=== PATIENT | female | born 1945 | race Caucasian/White ===

== ENCOUNTER 2017-03-29 07:51 | Day surgery (SDC) | payer MEDICARE, BC ==
[2017-03-29 08:40] LABS: PARTIAL THROMBOPLASTIN TIME 27.4 SEC (23.5-35.8); PROTHROMBIN TIME 12.7 SEC (11.4-15.4)
[2017-03-29] MEDS ORDERED: OXYCODONE-ACETAMINOPHEN 5-325 MG TABLET ONE (10:42)
--- NOTE | 2017-03-29 11:59 | RADIOLOGY REPORT (SQ) ---
EXAM DESCRIPTION: CT LUMBAR SPINE WITH COMPLETED DATE/TIME: 03/29/2017 10:34 am REASON FOR STUDY: POST LUMBAR MYELOGRAM M48.06 SPINAL STENOSIS, LUMBAR REGION Z79.01 SHELTER (CU RRENT) USE OF ANTICOAGULANTS COMPARISON: None. TECHNIQUE: After performing lumbar myelogram, axial images were acquired through the lumbar spine wi thout intravenous contrast. Images reviewed with lung, soft tissue and bone windows. Reconstructed coronal and sagittal MPR images reviewed. All images stored on PACS. All CT scanners at this facility use dose modulation, iterative reconstruction, and/or weight based d osing when appropriate to reduce radiation dose to as low as reasonably achievable (ALARA). [facility]: Dose Right [facility]: CareDose [facility]: Dose Right [facility]: Teradose 4D [facility]: Smart Technologies RADIATION DOSE: Up-to-date CT equipment and radiation dose reduction techniques were employed. CTDIv ol: 14.7 mGy. DLP: 413 mGy-cm. mGy. LIMITATIONS: None. FINDINGS: SEGMENTATION: Normal. No transitional anatomy. ALIGNMENT: Grade 1 anterolisthesis of L4 on L5. VERTEBRAL BODIES: No fractures. No dislocation. No acute findings. HARDWARE: Posterior hardware at L4, L5, and S1. DISCS: L1-L2: Diffuse posterior disc bulge with focal right paracentral component. Mild spinal stenosis. L2-L3: Diffuse posterior disc bulge. Mild facet arthropathy. Mild -moderate spinal stenosis. L3-L4: Diffuse posterior disc bulge. Severe facet arthropathy. Severe spinal stenosis. L4-L5: Minimal diffuse posterior disc bulge. Laminectomy changes. No significant stenosis. L5-S1: No significant disc bulge. Laminectomy changes. No significant stenosis. PEDICLES, TRANSVERSE PROCESSES: No fractures. No dislocation. No acute findings. FACETS, POSTERIOR ELEMENTS: No fractures. No dislocation. VISUALIZED RIBS: No fractures. SOFT TISSUES: No significant or acute finding in adjacent soft tissues. OTHER: No other significant finding. IMPRESSION: SURGICAL CHANGES DESCRIBED. SPINAL STENOSIS IN THE UPPER LUMBAR SPINE WITH SEVERE ST ENOSIS AT L3-L4. COMMENT: Patient medication list reviewed: Yes- Quality ID# [id number]:Eligible professional attests to doc umenting in the medical record they obtained, updated, or reviewed the patient's current medications. TECHNICAL DOCUMENTATION: JOB ID: [id number] Quality ID # [id number]: Final reports with documentation of one or more dose reduction techniques (e.g., Au tomated exposure control, adjustment of the mA and/or kV according to patient size, use of iterative reconstruction technique) 2010 [employer]- All Rights Reserved
--- NOTE | 2017-03-29 12:02 | RADIOLOGY REPORT (SQ) ---
EXAM DESCRIPTION: MYELOGRAM LUMBAR COMPLETED DATE/TIME: 03/29/2017 10:26 am REASON FOR STUDY: SPINAL STENOSIS M48.06 SPINAL STENOSIS, LUMBAR REGION Z79.01 HALFWAY (CURRENT) USE OF ANTICOAGULANTS COMPARISON: None. FLUOROSCOPY TIME: 1 minutes 48 seconds. 31 images saved to PACS. TECHNIQUE: Fluoroscopic guided lumbar myelogram. LIMITATIONS: None. PROCEDURE: After written consent and assessment were obtained, the patient was brought into the fluo roscopy room and placed prone on the table. The patient's lower back was prepped in a sterile fashio n and an entry site was selected under live fluoroscopic guidance. The entry site was anesthetized wi th 1% lidocaine. The spinal needle was advanced through the skin and into the thecal sac at the leve l of L3-L4. Contrast was injected into the thecal sac. Following the procedure the needle was remov ed and a sterile bandage was placed of the site. CONTRAST: 15 mL Isovue 200.. IMAGES ACQUIRED: 31 images. FINDINGS: Contrast is present in the thecal sac. There are surgical changes in the lower lumbar spine with hardware. There is evidence of lumbar disc disease with stenosis in the upper lumbar spine, most pronounced at L3-L4. IMPRESSION: LUMBAR MYELOGRAM PERFORMED FOR CT MYELOGRAPHY. PLEASE REFER TO THE REPORT OF THE CT MYE LOGRAM FOR DETAILED DIAGNOSTIC EVALUATION. COMMENT: Patient medication list reviewed: Yes- Quality ID# [id number]:Eligible professional attests to doc umenting in the medical record they obtained, updated, or reviewed the patient's current medications. . Quality ID 145: Final reports for procedures using fluoroscopy that document radiation exposure iesha alycia, or exposure time and number of fluorographic images (if radiation exposure indices are not avail able) TECHNICAL DOCUMENTATION: JOB ID: [id number] [employer]- All Rights Reserved
[2017-03-29 13:16] VITALS: BP 157/75
== END 2017-03-29 12:40 | disposition home or self-care (01) ==
LOC: RAD 07:51
PROVIDERS: ATTEND Physician Assistant
PROC: B01BYZZ Fluoroscopy of Spinal Cord using Other Contrast (ICD-10-PCS; principal; 2017-03-29)
DX: M48.06 Spinal stenosis, lumbar region (principal); Z79.01 Long term (current) use of anticoagulants
CPT/HCPCS: 36415; 85610; 85730; 72265; 72132; A9270

== ENCOUNTER → 2018-06-21 | Outpatient (CLI) | payer MEDICARE, BC ==
--- NOTE | 2018-07-05 09:34 | WOMENS IMAGING REPORT ---
EXAM DESCRIPTION: 3D SCREENING MAMMO BILAT COMPLETED DATE/TIME: 06/21/2018 10:35 am REASON FOR STUDY: ROUTINE SCREENING Z12.31 Z12.31 ENCNTR SCREEN MAMMOGRAM FOR MALIGNANT NEOPLASM OF ROBERTO COMPARISON: 2015 TECHNIQUE: Standard craniocaudal and mediolateral oblique views of each breast recorded using digita l acquisition and breast tomosynthesis. LIMITATIONS: None. FINDINGS: No masses, calcifications or architectural distortion. No areas of suspicion. Read with the assistance of CAD. .[facility] - R2 Cenova Version 1.3 .[facility] - R2 Cenova Version 1.3 .[facility] - R2 Cenova Version 2.4 .[facility] [place] Cenova Version 2.4 .[facility] AT [facility] - R2 [employer] Maker Version 9.2 IMPRESSION: NORMAL MAMMOGRAM. BIRADS 1. BREAST DENSITY: b. There are scattered areas of fibroglandular density. BIRAD: 1 NEGATIVE RECOMMENDATION: ROUTINE SCREENING COMMENT: The patient has been notified of the results by letter per SA requirements. Additional no tification policies are in place for contacting patient with suspicious or incomplete findings. Quality ID #225: The [employer] recommends an annual screening mammogram for women aged 40 years or over. This facility utilizes a reminder system to ensure that all patients receive reminder letters, and/or direct phone calls for appointments. This includes reminders for routine scr eening mammograms, diagnostic mammograms, or other Breast Imaging Interventions when appropriate. Th is patient will be placed in the appropriate reminder system. The [employer] (ACR) has developed recommendations for screening MRI of the breast s in certain patient populations, to be used in conjunction with mammography. Breast MRI surveillanc e may be appropriate for women with more than 20% lifetime risk of developing breast cancer as deter mined by genetic testing, significant family history of the disease, or history of mantle radiation f or Hodgkins Disease. ACR Practice Guidelines 2008. DBT Technology DBT is a type of tomographic mammography. With conventional mammography, overlapping breast tissue ma y make lesions difficult to detect, even with good compression. DBT uses an x-ray tube that rotates a round the breast, taking images at different angles. These images are then combined to create thin sl ices of the breast that the radiologist can view as a 3D reconstruction. The [employer] unit can perform full-field digital mammograms (2D imaging); or DBT (3D imaging); or both, in a combination mode that quickly performs both the mammogram and the tomosynthesis scan while the breast is still compressed. PQRS 6045F: Fluoroscopic imaging is not utilized for breast tomosynthesis. TECHNICAL DOCUMENTATION: FINDING NUMBER: (1) ASSESSMENT: (1) JOB ID: [id number] [employer]- All Rights Reserved Reading location - IP/workstation name: [email or web address]
== END ==
LOC: WI 10:02
PROVIDERS: ATTEND Obstetrics & Gynecology
DX: Z12.31 Encounter for screening mammogram for malignant neoplasm of breast (principal)
CPT/HCPCS: 77063; 77067

== ENCOUNTER 2020-09-24 13:32 | Inpatient (IN) | payer MEDICARE, BC ==
[2020-09-24] MEDS ORDERED: NORMAL SALINE 500 ML IV ONE (14:13)
--- NOTE | 2020-09-24 14:24 | ER Document Report ---
ED Medical Screen (RME) - General Chief Complaint: Vomiting/Diarrhea Stated Complaint: DIARRHEA,VOMITING,RECTAL BLEEDING Time Seen by Provider: 09/24/20 14:03 Primary Care Provider: VALENTINA JIANG DO [Primary Care Provider] - Follow up as needed TRAVEL OUTSIDE OF THE [place] IN LAST 30 DAYS: No - HPI Notes: 09/24/20 14:14 75 year old female with a history of hypertension, uxf-ggjdbif-cqnrlyoms diabetes allergies presents to the emergency room today for acute onset abdominal pain which caused her to have vomiting and she was having bloody stool that is started late last night and into the crystal lapper. Reports she took 2 antidiarrheal medications which have slowed down her stooling. Patient has a history of severe anemia and has had multiple blood transfusions. Denies any history of IBS or Crohn's disease, recent travel outside the country, recently started on glipizide she said it upset her stomach so she went to half a dose which has helped. Denies any chest pain shortness of breath - Related Data Allergies/Adverse Reactions: aspirin [Aspirin] Allergy (Mild, Verified 03/24/16 19:07) Generalized rash cephalexin monohydrate [From Keflex] Allergy (Mild, Verified 03/24/16 19:07) Generalized Itching glucosamine [Glucosamine] Allergy (Mild, Verified 03/24/16 19:07) Generalized Itching latex [Latex] Allergy (Mild, Verified 03/24/16 19:07) Generalized Itching niacin [Niacin] Allergy (Mild, Verified 03/24/16 19:07) Generalized Itching Past Medical History - Past Medical History Cardiac Medical History: Reports: Hx Coronary Artery Disease, Hx Hypertension Denies: Hx Heart Attack Pulmonary Medical History: Reports: Hx Asthma Denies: Hx Bronchitis, Hx COPD, Hx Pneumonia Neurological Medical History: Denies: Hx Cerebrovascular Accident, Hx Seizures Musculoskeltal Medical History: 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
[2020-09-24 14:52] LABS: ABSOLUTE LYMPHOCYTES (AUTO) 1.8 10^3/uL (0.5-4.7); ABSOLUTE MONOCYTES (AUTO) 0.8 10^3/uL (0.1-1.4); ABSOLUTE NEUT (AUTO) 8.3 10^3/uL (1.7-8.2); BASOPHILS % (AUTO) 0.4 % (0-2); EOSINOPHILS % (AUTO) 0.3 % (0-6); HEMATOCRIT 43.5 % (36.0-47.0); HEMOGLOBIN 15.2 g/dL (12.0-15.5); LYMPHOCYTES % (AUTO) 16.2 % (13-45); MEAN CORPUSCULAR HEMOGLOBIN 30.6 pg (27.0-33.4); MEAN CORPUSCULAR HGB CONC 35.1 g/dL (32.0-36.0); MEAN CORPUSCULAR VOLUME 87 fl (80-97); MONOCYTES % (AUTO) 7.5 % (3-13); PLATELET COUNT 312 10^3/uL (150-450); RED BLOOD COUNT 4.98 10^6/uL (3.72-5.28); RED CELL DISTRIBUTION WIDTH 12.8 % (11.5-14.0); SEGMENTED NEUTROPHILS % (AUTO) 75.6 % (42-78); TOTAL CELLS COUNTED % (AUTO) 100 %; WHITE BLOOD COUNT 10.9 10^3/uL (4.0-10.5)
[2020-09-24 14:57] LABS: INTERNATIONAL RATION (INR) 1.04; PROTHROMBIN TIME 13.8 SEC (11.4-15.4)
[2020-09-24 14:58] LABS: PARTIAL THROMBOPLASTIN TIME 26.8 SEC (23.5-35.8)
[2020-09-24 15:19] LABS: ALBUMIN 4.2 g/dL (3.5-5.0); ALKALINE PHOSPHATASE 108 U/L (38-126); ANION GAP 11 (5-19); ASPARTATE AMINO TRANSFERASE 27 U/L (14-36); BILIRUBIN,DIRECT 0.3 mg/dL (0.0-0.4); BILIRUBIN,TOTAL 1.1 mg/dL (0.2-1.3); BLOOD UREA NITROGEN 19 mg/dL (7-20); CALCIUM 9.7 mg/dL (8.4-10.2); CARBON DIOXIDE 27 mmol/L (22-30); CHLORIDE 92 mmol/L (98-107); POTASSIUM 4.3 mmol/L (3.6-5.0); TOTAL PROTEIN 7.1 g/dL (6.3-8.2)
[2020-09-24 15:26] LABS: GLUCOSE 436 mg/dL (75-110)
--- NOTE | 2020-09-24 18:57 | ER Document Report ---
ED General - General Chief Complaint: Abdominal Pain Stated Complaint: DIARRHEA,VOMITING,RECTAL BLEEDING Time Seen by Provider: 09/24/20 14:03 Primary Care Provider: VALENTINA JIANG DO [Primary Care Provider] - Follow up as needed TRAVEL OUTSIDE OF THE [place] IN LAST 30 DAYS: No - HPI Notes: Patient is a 75-year-old female presents emergency department for evaluation of vomiting, and bloody stools. Patient states she took her glipizide, which she believes she has some sensitivity to. She started having vomiting and diarrhea. She had 2 episodes of nonbloody, nonbilious emesis. Throughout the night she had diarrhea. She did not realize in the till the morning that it was bloody. She states it was primarily bright red. She is some cramping lower abdominal pain. She is not any blood thinners. She does have a history of iron deficiency anemia, receives iron infusions intermittently. She denies any fevers or chills. No cough or shortness of breath. No hematuria, dysuria, urinary frequency. The patient states she attributes all of this to the medication. She states that when she takes her pill she gets "swelling of the tongue" then the vomiting and diarrhea. She already has an appointment with her primary care provider on to discuss a new medication for her glucose control. She states that she usually does not have high blood sugar, but cannot tell me what her blood sugar normally runs. - Related Data Allergies/Adverse Reactions: aspirin [Aspirin] Allergy (Mild, Verified 09/24/20 14:59) Generalized rash cephalexin monohydrate [From Keflex] Allergy (Mild, Verified 09/24/20 14:59) Generalized Itching glucosamine [Glucosamine] Allergy (Mild, Verified 09/24/20 14:59) Generalized Itching latex [Latex] Allergy (Mild, Verified 09/24/20 14:59) Generalized Itching niacin [Niacin] Allergy (Mild, Verified 09/24/20 14:59) Generalized Itching Home Medications: Lisinopril, HCTZ, glipizide, Ultram Past Medical History - General Information source: Patient - Social History Smoking Status: Never Smoker Family History: Reviewed & Not Pertinent - Past Medical History Cardiac Medical History: Reports: Hx Hypertension Denies: Hx Heart Attack Pulmonary Medical History: Reports: Hx Asthma Denies: Hx Bronchitis, Hx COPD, Hx Pneumonia Neurological Medical History: Denies: Hx Cerebrovascular Accident, Hx Seizures GI Medical History: Reports: Hx Ulcer - Noted on EGD in 2016, currently untreated Musculoskeletal Medical History: 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 Past Surgical History: Reports: Hx Hysterectomy, Hx Orthopedic Surgery Review of Systems - Review of Systems Constitutional: No symptoms reported EENT: See HPI Cardiovascular: No symptoms reported Respiratory: No symptoms reported Gastrointestinal: See HPI Genitourinary: No symptoms reported Musculoskeletal: No symptoms reported Skin: No symptoms reported Neurological/Psychological: No symptoms reported Physical Exam - Vital signs Vitals: Temp Pulse Resp BP Pulse Ox 98.1 F 100 20 128/77 H 95 09/24/20 13:58 09/24/20 13:58 09/24/20 13:58 09/24/20 13:58 09/24/20 13:58 - Notes Notes: Vital signs reviewed, please refer to chart. Head is normocephalic, atraumatic. Pupils equal round, reactive to light. Neck is supple without meningismus. Heart is regular rate and rhythm. Lungs are clear to auscultation bilaterally. Abdomen is soft, mildly tender bilateral lower quadrants without rebound or guarding, normoactive bowel sounds throughout. Extremities without cyanosis, clubbing. Posterior calves are nontender. Peripheral pulses are equal. Skin is warm and dry. Patient is awake, alert, neurological exam is nonfocal. Course - Re-evaluation Re-evalutation: 09/24/20 18:55 Patient presents emergency department for evaluation. Laboratory investigations and imaging was ordered through triage. Imaging is still pending. Laboratory investigations failed to reveal any significant leukocytosis or anemia. Her blood sugar is markedly elevated. Patient has multiple medication sensitivities. She is n.p.o. I am not inclined to treat this high glucose with anything beyond fluids at this time. Patient is amenable to this plan. Otherwise, I reviewed her colonoscopy, she was found to have both diverticulosis and internal hemorrhoids at that time. The patient has had a few bowel movements since arrival, the last several have been nonbloody. We talked about the possibility of being admitted to the hospital, given her age and the mult iple bloody bowel movements that she had, but she states she would prefer not to. In light of the Covid epidemic, I do believe it is more reasonable to send this patient home, pending a normal CT scan. She already has GI, has seen Dr. Bolivar in the past, and is actually had a repeat EGD, colonoscopy, and "pill camera" performed since her discharge in 2016. She already has an appoint with her primary care provider on . I explained to her that her blood glucose was high, that she would absolutely need to be on medication to control this better. She voiced understanding. I explained her that any further bloody stools should prompt her to return and she voiced understanding. Otherwise, pending unremarkable CT scan, patient will be discharged. 09/24/20 19:19 CT scan does show findings consistent with colitis. I reiterated with patient, she is not been on any recent antibiotics, does not have any risk factors for C. difficile. Based on this finding I did speak with Dr. Horvath. He recommends admission and colonoscopy. I went back in to talk to the patient and she did have another bloody bowel movement. Given this information, she was amenable to staying. Will contact medicine. 09/24/20 19:22 Please note patient was notified of bilateral renal cyst finding and need for further imaging to delineate whether any of these could be possible solid masses. 09/24/20 19:[address] Garcia, he will evaluate the patient. - Vital Signs Vital signs: Temp Pulse Resp BP Pulse Ox 98.0 F 89 16 152/75 H 98 09/24/20 15:49 09/24/20 15:49 09/24/20 20:00 09/24/20 17:00 09/24/20 20:00 - Laboratory Results Result Diagrams: 09/24/20 14:20 09/24/20 14:20 Laboratory Results Interpreted: 09/24/20 09/24/20 09/24/20 14:20 14:20 15:37 WBC 10.9 H Absolute Neuts (auto) 8.3 H Sodium 130.3 L Chloride 92 L Est GFR (MDRD) Non-Af 57 L Glucose 436 H* Stool for White Cells MODERATE H Critical Laboratory Results Reviewed: Yes Attending or Supervising Physician who Reviewed Labs: NADIYA FERGUSON - Radiology Results Radiology Results Interpreted: 09/24/20 19:21 Abdomen/Pelvis CT 09/24/20 14:11 IMPRESSION: 1. Relative diffuse colitis extending from the hepatic flexure to the rectum with differential considerations including infectious and inflammatory etiologies. C difficile colitis should also be considered. 2. No bowel obstruction. 3. Moderate to large hiatal hernia. 4. Multiple bilateral renal cysts. Some lesions are not optimally assessed due to size and artifact from adjacent lumbar spine hardware. Suggest ultrasound for further evaluation and to exclude solid lesion. Critical Radiology Results Reviewed: No Critical Results Discharge - Discharge Clinical Impression: Lower abdominal pain, Hematochezia, Nausea vomiting and diarrhea, Bilateral renal cysts Hyperglycemia due to type 2 diabetes mellitus Qualifiers: Diabetes mellitus senior living insulin use: without senior living use Qualified Code(s): E11.65 - Type 2 diabetes mellitus with hyperglycemia Condition: Stable Disposition: ADMITTED INPATIENT Admitting Provider: [facility] Unit Admitted: [facility] Referrals: VALENTINA JIANG DO [Primary Care Provider] - Follow up as needed
--- NOTE | 2020-09-24 19:00 | RADIOLOGY REPORT (SQ) ---
EXAM DESCRIPTION: CT ABD/PELVIS WITH IV ORAL IMAGES COMPLETED DATE/TIME: 09/24/2020 3:17 pm REASON FOR STUDY: abd pain, melena, sudden onset last night COMPARISON: None. TECHNIQUE: CT scan of the abdomen and pelvis performed using helical scanning technique with dynamic intravenous contrast injection. Oral contrast was also given. Images reviewed with lung, soft tissu e, and bone windows. Reconstructed coronal and sagittal MPR images reviewed. Delayed images for evalu ation of the urinary system also acquired. All images stored on PACS. All CT scanners at this facility use dose modulation, iterative reconstruction, and/or weight based d osing when appropriate to reduce radiation dose to as low as reasonably achievable (ALARA). [facility]: Dose Right [facility]: CareDose [facility]: Dose Right [facility]: Teradose 4D [facility]: [employer] CONTRAST TYPE AND DOSE: contrast/concentration: Isovue 350.00 mmol/ml; Total Contrast Delivered: 70. 0 ml; Total Saline Delivered: 35.3 ml RENAL FUNCTION: Creatinine 0.96 RADIATION DOSE: CT Rad equipment meets quality standard of care and radiation dose reduction techniq ues were employed. CTDIvol: 6.9 - 9.6 mGy. DLP: 790 mGy-cm.. LIMITATIONS: Artifact from lumbar spine hardware. FINDINGS: LOWER CHEST: Lung bases are clear. Moderate to large-sized hiatal hernia. The superior e xtent of the hernia is not fully included. LIVER: Normal size. No masses. No dilated ducts. SPLEEN: Normal size. No focal lesions. PANCREAS: No masses. No significant calcifications. No adjacent inflammation or peripancreatic fluid collections. Pancreatic duct not dilated. GALLBLADDER: No identified stones by CT criteria. No inflammatory changes to suggest cholecystitis. ADRENAL GLANDS: No significant masses or asymmetry. RIGHT KIDNEY AND URETER: No suspicious renal mass. Multiple hypodense renal lesions likely represent ing benign cysts. No significant calcifications. No hydronephrosis or hydroureter. LEFT KIDNEY AND URETER: Multiple hypodense renal lesions likely representing benign cysts. Possible small hyperdense cyst at the lower pole left kidney (series 3, image 37). This is also not optimally assessed given small size and artifact from adjacent hardware. . No significant calcifications. No hydronephrosis or hydroureter. AORTA AND VESSELS: Atherosclerotic plaque without aneurysm. RETROPERITONEUM: No retroperitoneal adenopathy, hemorrhage or masses. BOWEL AND PERITONEAL CAVITY: There is diffuse circumferential wall thickening of the: Extending from the proximal transverse colon/ hepatic flexure to the level of the rectum. Adjacent fat stranding a lso demonstrated. No obstruction. APPENDIX: Normal. This is better seen on coronal images (series 601 images 39 and 40). PELVIS: No mass. No free fluid. Normal bladder. Status posthysterectomy. ABDOMINAL WALL: No masses. No hernias. BONES: Postsurgical changes related to posterior and interbody fusion of the lumbar spine. No destru ctive bone lesions identified. OTHER: No other significant finding. IMPRESSION: 1. Relative diffuse colitis extending from the hepatic flexure to the rectum with diffe rential considerations including infectious and inflammatory etiologies. C difficile colitis should also be considered. 2. No bowel obstruction. 3. Moderate to large hiatal hernia. 4. Multiple bilateral renal cysts. Some lesions are not optimally assessed due to size and artifact from adjacent lumbar spine hardware. Suggest ultrasound for further evaluation and to exclude solid lesion. TECHNICAL DOCUMENTATION: JOB ID: [id number] Quality ID # [id number]: Final reports with documentation of one or more dose reduction techniques (e.g., Au tomated exposure control, adjustment of the mA and/or kV according to patient size, use of iterative reconstruction technique) 2010 [employer]- All Rights Reserved Reading location - IP/workstation name: [email or web address]
[2020-09-24] MEDS ORDERED: ONDANSETRON HCL INJ/PF 4 MG/2 ML SDV IV PRN (20:34)
[2020-09-24] MEDS ORDERED: ACETAMINOPHEN 325 MG TABLET PO PRN (20:34)
[2020-09-24] MEDS ORDERED: DEXTROSE 50%-WATER 25 GM/50 ML DISP.SYRIN IV PRN ×2 (20:42)
[2020-09-24] MEDS ORDERED: GLUCAGON,HUMAN RECOMB 1 MG INJ IM PRN (20:42)
[2020-09-24] MEDS ORDERED: DEXTROSE 40% GEL 15 GM TUBE PO PRN ×2 (20:42)
--- NOTE | 2020-09-24 21:01 | PDOC H&P ---
History of Present Illness Admission Date/PCP: VALENTINA JIANG MD Patient complains of: Nausea, vomiting and bloody diarrhea History of Present Illness: JUDITH QUEZADA is a 75 year old female with a history of hypertension, type 2 diabetes, chronic low back pain and history of iron deficiency anemia with multiple infusions and blood transfusions since 2010 now presents to the ED reporting 2 days duration of nausea, vomiting, bloody diarrhea. She states that she became nauseous and started having vomiting after she took glipizide. And following that started having multiple episodes of diarrhea mixed with bright red blood. Associated with this she also reports crampy, 7/10 constant lower abdominal pain with no aggravating or relieving factor. She has not noticed any bleeding in her vomitus and denies upper abdominal pain. She reports that she had a history of chronic anemia and has been following up with heme-onc for a long time. She states that she has been worked up extensively including upper and lower GI endoscopy with capsule endoscopy which were all negative except for signs of hemorrhoid. She had multiple transfusions in the past including iron IV iron infusion. Patient states that the cause of her anemia was not known. Her last colonoscopy with 3 years back and she states it was negative except some internal hemorrhoids. She denies any fever, chills, dysuria, frequency, urgency, shortness of breath, chest pain. Currently she is not on any blood thinners including aspirin. Past Medical History Cardiac Medical History: Reports: Coronary Artery Disease, Hypertension Denies: Myocardial Infarction Pulmonary Medical History: Reports: Asthma Denies: Bronchitis, Chronic Obstructive Pulmonary Disease (COPD), Pneumonia Neurological Medical History: Denies: Seizures Musculoskeltal Medical History: Reports: Arthritis - osteo Hematology: Reports: Anemia Past Surgical History Past Surgical History: Reports: Hysterectomy, Orthopedic Surgery Social History Information Source: Patient Lives with: Family Smoking Status: Never Smoker Frequency of Alcohol Use: None Hx Recreational Drug Use: No Drugs: None Hx Prescription Drug Abuse: No - Advance Directive Resuscitation Status: Full Code Family History Family History: Reviewed & Not Pertinent Parental Family History Reviewed: Yes Children Family History Reviewed: Yes Sibling(s) Family History Reviewed.: Yes Medication/Allergy Home Medications: Cetirizine HCl [Zyrtec 10 mg Tablet] 1 tab PO DAILY 03/20/15 Lisinopril 10 mg PO DAILY 03/20/15 Multivit-Min/Iron/Folic/Lutein [Centrum Silver Women Tablet] 1 tab PO DAILY 03/20/15 Tramadol HCl 50 mg PO Q8HP PRN 03/20/15 Albuterol Sulfate [Proair HFA Inhalation Aerosol 8.5 gm MDI] 2 puff IH Q6HP PRN 09/24/20 Glipizide [Glipizide Xl] 10 mg PO DAILY 09/24/20 Hydrochlorothiazide [Hydrodiuril 25 mg Tablet] 12.5 mg PO DAILY 09/24/20 Multivitamin,Stress Formula [Stress Formula] 1 tab PO DAILY 09/24/20 Vit D3-Vit K/Berberine/Hops [Ostera Tablet] 1,000 mcg PO DAILY 09/24/20 Allergies/Adverse Reactions: aspirin [Aspirin] Allergy (Mild, Verified 09/24/20 14:59) Generalized rash cephalexin monohydrate [From Keflex] Allergy (Mild, Verified 09/24/20 14:59) Generalized Itching glucosamine [Glucosamine] Allergy (Mild, Verified 09/24/20 14:59) Generalized Itching latex [Latex] Allergy (Mild, Verified 09/24/20 14:59) Generalized Itching niacin [Niacin] Allergy (Mild, Verified 09/24/20 14:59) Generalized Itching Review of Systems Constitutional: ABSENT: chills, fever(s), headache(s), weight gain, weight loss Eyes: ABSENT: visual disturbances Ears: ABSENT: hearing changes Nose, Mouth, and Throat: ABSENT: mouth pain, sore throat Cardiovascular: ABSENT: chest pain, dyspnea on exertion, edema, orthropnea, palpitations Respiratory: ABSENT: cough, hemoptysis Gastrointestinal: PRESENT: as per HPI Genitourinary: ABSENT: dysuria, hematuria Musculoskeletal: ABSENT: joint swelling Integumentary: ABSENT: rash, wounds Neurological: ABSENT: abnormal gait, abnormal speech, confusion, dizziness, focal weakness, syncope Psychiatric: ABSENT: anxiety, depression, homidical ideation, suicidal ideation Endocrine: ABSENT: cold intolerance, heat intolerance Hematologic/Lymphatic: ABSENT: easy bleeding, easy bruising Physical Exam Vital Signs: Temp Pulse Resp BP Pulse Ox 98.0 F 89 16 152/75 H 98 09/24/20 15:49 09/24/20 15:49 09/24/20 20:00 09/24/20 17:00 09/24/20 20:00 Intake & Output 09/23/20 09/24/20 09/25/20 06:59 06:59 06:59 Intake Total 500 Balance 500 Weight 61.235 kg Additional comments: GENERAL APPEARANCE: Alert and oriented x3, in no acute distress HEENT: Normocephalic and atraumatic. No scleral icterus. Moist oral mucosa NECK: Supple. No lymphadenopathy or tenderness. No carotid bruit. No JVD CHEST: Symmetric. Nontender to palpation. LUNGS: Clear with good air entry bilaterally. No wheezing or crackles HEART: Regular rate and rhythm with normal S1 and S2. No murmurs, gallops, or rubs. ABDOMEN: soft, active bowel sounds, has lower abdominal tenderness but no rebound tenderness, guarding or rigidity. No organomegaly detected. EXTREMITIES: No cyanosis, clubbing, or edema. MUSCULOSKELETAL: No deformity, atrophy or swelling noted PSYCHIATRIC: Recent and remote memory is intact. Appropriate mood and affect. SKIN: Warm, dry, and well perfused. No lesions or rashes are noted. NEUROLOGIC: No focal sensory or motor deficits are noted. Results Laboratory Results: 09/24/20 14:20 09/24/20 14:20 09/24/20 09/24/20 09/24/20 14:20 14:20 14:20 WBC 10.9 H RBC 4.98 Hgb 15.2 Hct 43.5 MCV 87 MCH 30.6 MCHC 35.1 RDW 12.8 Plt Count 312 Seg Neutrophils % 75.6 Sodium 130.3 L Potassium 4.3 Chloride 92 L Carbon Dioxide 27 Anion Gap 11 BUN 19 Creatinine 0.96 Est GFR ( Amer) > 60 Glucose 436 H* Calcium 9.7 Total Bilirubin 1.1 AST 27 Alkaline Phosphatase 108 Total Protein 7.1 Albumin 4.2 Lipase 271.6 Stool for White Cells Blood Type B POSITIVE Antibody Screen NEGATIVE 09/24/20 15:37 WBC RBC Hgb Hct MCV MCH MCHC RDW Plt Count Seg Neutrophils % Sodium Potassium Chloride Carbon Dioxide Anion Gap BUN Creatinine Est GFR ( Amer) Glucose Calcium Total Bilirubin AST Alkaline Phosphatase Total Protein Albumin Lipase Stool for White Cells MODERATE H Blood Type Antibody Screen Impressions: Abdomen/Pelvis CT 09/24/20 14:11 IMPRESSION: 1. Relative diffuse colitis extending from the hepatic flexure to the rectum with differential considerations including infectious and inflammatory etiologies. C difficile colitis should also be considered. 2. No bowel obstruction. 3. Moderate to large hiatal hernia. 4. Multiple bilateral renal cysts. Some lesions are not optimally assessed due to size and artifact from adjacent lumbar spine hardware. Suggest ultrasound for further evaluation and to exclude solid lesion. Assessment and Plan - Diagnosis (1) Hematochezia Is this a current diagnosis for this admission?: Yes Plan: Patient presents with diarrhea with multiple episodes of bright red bleeding per rectum Currently hemodynamically stable H&H on this encounter is 15.2/43.5, likely hemoconcentration may be contributing CT abdomen showed diffuse colitis extending from hepatic flexure to rectum Possible causes include infectious colitis, inflammatory colitis, hemorrhoids, ischemic colitis Obtain 2 large-bore IV access Type and crossmatch Serially trend H&H every 6 hourly Continue IV fluid and closely monitor vital signs Keep n.p.o. GI on board and planning to do colonoscopy once Covid test comes back (2) Colitis Is this a current diagnosis for this admission?: Yes Plan: Presents with multiple episodes of diarrhea with hematochezia CT abdomen shows signs of diffuse colitis extending from hepatic flexure to rectum Likely differentials include infectious colitis versus inflammatory Continue hydration with IV fluids Will hold off on IV antibiotic for now, due to possibility of Shigella toxin producing E. coli and has no systemic symptoms Follow-up with stool studies including C. difficile GI on board, planning to do colonoscopy and follow-up with recommendations (3) Nausea vomiting and diarrhea Is this a current diagnosis for this admission?: Yes Plan: Likely due to underlying colitis We will keep her n.p.o. now On IV PPI Zofran as needed for nausea and vomiting On IV fluids (4) Hyperglycemia due to type 2 diabetes mellitus Qualifiers: Diabetes mellitus usp insulin use: without usp use Qualified Code(s): E11.65 - Type 2 diabetes mellitus with hyperglycemia Is this a current diagnosis for this admission?: Yes Plan: Blood sugar on presentation was 436 Placed her on sliding scale Hypoglycemia protocol, Accu-Cheks (5) Hypertension Is this a current diagnosis for this admission?: Yes Plan: Blood pressure is in the 130s/70s Patient is on lisinopril and hydrochlorothiazide at home Hold off on antihypertensive medications for now due to GI bleed Closely monitor vital signs (6) History of anemia Is this a current diagnosis for this admission?: Yes Plan: Patient reports a history of chronic anemia requiring transfusions and iron infusion in the past Currently presents with signs of lower GI bleed H&H 15.2/43.5, likely hemoconcentration We will serially trend CBC Typed and crossmatched (7) Overweight (BMI 25.0-29.9) Is this a current diagnosis for this admission?: Yes Plan: Encourage dietary modification, and regular exercise to attain optimal weight - Time Time Spent with patient: 35 or more minutes Total Critical Time (Minutes): 50 Medications reviewed and adjusted accordingly: Yes Anticipated Discharge Disposition: Home, Self Care Anticipated Discharge Timeframe: within 72 hours - Inpatient Certification Based on my medical assessment, after consideration of the patient's comorbidities, presenting symptoms, or acuity I expect that the services needed warrant INPATIENT care.: Yes I certify that my determination is in accordance with my understanding of Medicare's requirements for reasonable and necessary INPATIENT services [42 CFR 412.3e].: Yes Medical Necessity: Significant Comorbidiites Make Outpatient Treatment Too Risky, Need Close Monitoring Due to Risk of Patient Decompensation, Need For IV Fluids, Risk of Complication if Not Cared For in Hospital Post Hospital Care: D/C or Transfer Summary
--- NOTE | 2020-09-24 21:08 | PDOC CONSULTATION ---
Consultation Consult Date: 09/24/20 Provider Consulted: CHELI LEIVA Consult reason:: sudden onset of abdominal pain and rectal bleeding with abnormal CT scan History of Present Illness Admission Date/PCP: VALETNINA JIANG MD History of Present Illness: JUDITH QUEZADA is a 75 year old female asked to see this patient who presents to the ED with sudden onset of abdominal pain associated with rectal bleeding, ongoing CT scan done shows colitis extending from the hepatic flexure to the rectum ? possible colitis patient has a normal HGB patient needs to be admitted a colonoscopy is indicated patient also noted to have a large hiatal hernia as well Rapid Covid 19 testing is being done Past Medical History Cardiac Medical History: Reports: Coronary Artery Disease, Hypertension Denies: Myocardial Infarction Pulmonary Medical History: Reports: Asthma Denies: Bronchitis, Chronic Obstructive Pulmonary Disease (COPD), Pneumonia Neurological Medical History: Denies: Seizures Musculoskeltal Medical History: Reports: Arthritis - osteo Hematology: Reports: Anemia Past Surgical History Past Surgical History: Reports: Hysterectomy, Orthopedic Surgery Social History Smoking Status: Never Smoker Frequency of Alcohol Use: None Hx Recreational Drug Use: No Drugs: None Hx Prescription Drug Abuse: No Family History Family History: Reviewed & Not Pertinent Parental Family History Reviewed: Yes Children Family History Reviewed: No Sibling(s) Family History Reviewed.: No Medication/Allergy Home Medications: Cetirizine HCl [Zyrtec 10 mg Tablet] 1 tab PO DAILY 03/20/15 Lisinopril 10 mg PO DAILY 03/20/15 Multivit-Min/Iron/Folic/Lutein [Centrum Silver Women Tablet] 1 tab PO DAILY 03/20/15 Tramadol HCl 50 mg PO Q8HP PRN 03/20/15 Albuterol Sulfate [Proair HFA Inhalation Aerosol 8.5 gm MDI] 2 puff IH Q6HP PRN 09/24/20 Glipizide [Glipizide Xl] 10 mg PO DAILY 09/24/20 Hydrochlorothiazide [Hydrodiuril 25 mg Tablet] 12.5 mg PO DAILY 09/24/20 Multivitamin,Stress Formula [Stress Formula] 1 tab PO DAILY 09/24/20 Vit D3-Vit K/Berberine/Hops [Ostera Tablet] 1,000 mcg PO DAILY 09/24/20 Allergies/Adverse Reactions: aspirin [Aspirin] Allergy (Mild, Verified 09/24/20 14:59) Generalized rash cephalexin monohydrate [From Keflex] Allergy (Mild, Verified 09/24/20 14:59) Generalized Itching glucosamine [Glucosamine] Allergy (Mild, Verified 09/24/20 14:59) Generalized Itching latex [Latex] Allergy (Mild, Verified 09/24/20 14:59) Generalized Itching niacin [Niacin] Allergy (Mild, Verified 09/24/20 14:59) Generalized Itching Review of Systems Constitutional: ABSENT: fever(s), headache(s), night sweats Eyes: ABSENT: visual disturbances Ears: ABSENT: hearing changes Nose, Mouth, and Throat: ABSENT: mouth pain, sore throat Respiratory: ABSENT: dyspnea, hemoptysis Gastrointestinal: ABSENT: hematemesis, melena, nausea, vomiting Genitourinary: ABSENT: dysuria, hematuria Integumentary: ABSENT: lesions, pruritus Neurological: ABSENT: syncope, tingling, tremor(s), vertigo Endocrine: ABSENT: polydipsia, polyphagia, polyuria Hematologic/Lymphatic: ABSENT: easy bruising Physical Exam Vital Signs: Temp Pulse Resp BP Pulse Ox 98.0 F 89 16 152/75 H 98 09/24/20 15:49 09/24/20 15:49 09/24/20 20:00 09/24/20 17:00 09/24/20 20:00 Intake & Output 09/23/20 09/24/20 09/25/20 06:59 06:59 06:59 Intake Total 500 Balance 500 Weight 61.235 kg General appearance: PRESENT: no acute distress, well-developed, well-nourished Head exam: PRESENT: atraumatic, normocephalic Eye exam: PRESENT: EOMI, PERRLA. ABSENT: scleral icterus Mouth exam: PRESENT: moist, neck supple Neck exam: ABSENT: meningismus, tenderness, thyromegaly Respiratory exam: PRESENT: symmetrical, unlabored. ABSENT: tachypnea, wheezes Cardiovascular exam: PRESENT: RRR, +S1, +S2 GI/Abdominal exam: ABSENT: rebound, rigid, soft, tenderness Extremities exam: ABSENT: joint swelling, pedal edema Musculoskeletal exam: PRESENT: full ROM Neurological exam: PRESENT: oriented to person, oriented to place, oriented to time, CN II-XII grossly intact Skin exam: ABSENT: pallor, petechiae, urticaria Results Laboratory Results: 09/24/20 14:20 09/24/20 14:20 09/24/20 09/24/20 09/24/20 14:20 14:20 14:20 WBC 10.9 H RBC 4.98 Hgb 15.2 Hct 43.5 MCV 87 MCH 30.6 MCHC 35.1 RDW 12.8 Plt Count 312 Seg Neutrophils % 75.6 Sodium 130.3 L Potassium 4.3 Chloride 92 L Carbon Dioxide 27 Anion Gap 11 BUN 19 Creatinine 0.96 Est GFR ( Amer) > 60 Glucose 436 H* Calcium 9.7 Total Bilirubin 1.1 AST 27 Alkaline Phosphatase 108 Total Protein 7.1 Albumin 4.2 Lipase 271.6 Stool for White Cells Blood Type B POSITIVE Antibody Screen NEGATIVE 09/24/20 15:37 WBC RBC Hgb Hct MCV MCH MCHC RDW Plt Count Seg Neutrophils % Sodium Potassium Chloride Carbon Dioxide Anion Gap BUN Creatinine Est GFR ( Amer) Glucose Calcium Total Bilirubin AST Alkaline Phosphatase Total Protein Albumin Lipase Stool for White Cells MODERATE H Blood Type Antibody Screen Impressions: Abdomen/Pelvis CT 09/24/20 14:11 IMPRESSION: 1. Relative diffuse colitis extending from the hepatic flexure to the rectum with differential considerations including infectious and inflammatory etiologies. C difficile colitis should also be considered. 2. No bowel obstruction. 3. Moderate to large hiatal hernia. 4. Multiple bilateral renal cysts. Some lesions are not optimally assessed due to size and artifact from adjacent lumbar spine hardware. Suggest ultrasound for further evaluation and to exclude solid lesion. Assessment & Plan - Diagnosis (1) Hematochezia Plan: abnormal CT scan . Will require inpatient colonoscopy Risks, benefits and alternatives discussed will schedule in OR once Covid results obtained , will start prep on patient (2) Lower abdominal pain Plan: need to exclude possible ischemic colitis - Time Time Spent: 50 to 70 Minutes
[2020-09-24] MEDS: PANTOPRAZOLE SODIUM 40 MG VIAL IV SCH (22:08)
[2020-09-24] MEDS: RINGERS SOLUTION,LACTATED 1,000 ML IV PRN (22:58)
[2020-09-24] MEDS: INSULIN REG, HUMAN 100 UNIT/ML 3 ML VIAL (PYX) SUBCUT SCH (23:57)
[2020-09-25 01:11] LABS: HEMATOCRIT 39.1 % (36.0-47.0); HEMOGLOBIN 13.6 g/dL (12.0-15.5); MEAN CORPUSCULAR HEMOGLOBIN 30.2 pg (27.0-33.4); MEAN CORPUSCULAR HGB CONC 34.8 g/dL (32.0-36.0); MEAN CORPUSCULAR VOLUME 87 fl (80-97); PLATELET COUNT 225 10^3/uL (150-450); RED BLOOD COUNT 4.51 10^6/uL (3.72-5.28); RED CELL DISTRIBUTION WIDTH 12.6 % (11.5-14.0)
--- NOTE | 2020-09-25 02:00 | EKG REPORT ---
SEVERITY:- BORDERLINE ECG - SINUS RHYTHM PROBABLE LEFT ATRIAL ABNORMALITY BORDERLINE INFERIOR Q WAVES : Confirmed by: Stephenie Lechuga MD 25-Sep-2020 01:59:33
[2020-09-25] MEDS: INSULIN REG, HUMAN 100 UNIT/ML 3 ML VIAL (PYX) SUBCUT SCH (06:04)
[2020-09-25] MEDS: RINGERS SOLUTION,LACTATED 1,000 ML IV PRN ×2 (06:52→16:19)
[2020-09-25 07:36] LABS: ABSOLUTE EOSINOPHILS # (AUTO) 0.1 10^3/uL (0.0-0.6); ABSOLUTE LYMPHOCYTES (AUTO) 2.1 10^3/uL (0.5-4.7); ABSOLUTE MONOCYTES (AUTO) 0.6 10^3/uL (0.1-1.4); ABSOLUTE NEUT (AUTO) 5.7 10^3/uL (1.7-8.2); BASOPHILS % (AUTO) 0.3 % (0-2); EOSINOPHILS % (AUTO) 1.3 % (0-6); HEMATOCRIT 38.1 % (36.0-47.0); HEMOGLOBIN 13.4 g/dL (12.0-15.5); LYMPHOCYTES % (AUTO) 24.9 % (13-45); MEAN CORPUSCULAR HEMOGLOBIN 30.3 pg (27.0-33.4); MEAN CORPUSCULAR HGB CONC 35.1 g/dL (32.0-36.0); MEAN CORPUSCULAR VOLUME 86 fl (80-97); MONOCYTES % (AUTO) 6.5 % (3-13); PLATELET COUNT 228 10^3/uL (150-450); RED BLOOD COUNT 4.42 10^6/uL (3.72-5.28); RED CELL DISTRIBUTION WIDTH 12.6 % (11.5-14.0); TOTAL CELLS COUNTED % (AUTO) 100 %; WHITE BLOOD COUNT 8.6 10^3/uL (4.0-10.5)
[2020-09-25 08:03] LABS: ANION GAP 10 (5-19); BLOOD UREA NITROGEN 13 mg/dL (7-20); CALCIUM 9.2 mg/dL (8.4-10.2); CARBON DIOXIDE 26 mmol/L (22-30); CHLORIDE 97 mmol/L (98-107); GLUCOSE 241 mg/dL (75-110)
[2020-09-25 08:06] LABS: POTASSIUM 3.3 mmol/L (3.6-5.0)
[2020-09-25] MEDS ORDERED: DEXTROSE 50%-WATER SYRINGE 25 GM/50 ML DOSE IV PRN (09:30)
[2020-09-25] MEDS ORDERED: GLUCAGON,HUMAN RECOMB 1 MG INJ IM PRN (09:30)
[2020-09-25] MEDS ORDERED: DEXTROSE 40% GEL 15 GM TUBE X 2 PO PRN (09:30)
[2020-09-25] MEDS ORDERED: DEXTROSE 50%-WATER SYRINGE 12.5 GM/25 ML DOSE IV PRN (09:30)
[2020-09-25] MEDS ORDERED: DEXTROSE 40% GEL 15 GM TUBE PO PRN (09:30)
[2020-09-25] MEDS ORDERED: POLYETHYLENE GLYCOL 3350 238 GM POWDER PO ONE (11:00)
[2020-09-25] MEDS ORDERED: POLYETHYLENE GLYCOL 3350 POWDER 17 GM/1 PACKET PO ONE (11:00)
[2020-09-25] MEDS: INSULIN LISPRO 100 UNIT/ML 3 ML VIAL SUBCUT SCH ×2 (11:50→17:28)
[2020-09-25] MEDS: PANTOPRAZOLE SODIUM 40 MG VIAL IV SCH ×2 (11:50→23:15)
[2020-09-25] MEDS: POTASSI CL 20 MEQ/50 ML RIDER 20 MEQ/50 ML RTUPB IV SCH ×2 (11:51→17:06)
[2020-09-25] MEDS ORDERED: ALBUTEROL SULFATE HFA (90 MCG/PUFF) 8 GM MDI (1 MDI/ER DISP) IH PRN (14:06)
[2020-09-25] MEDS ORDERED: ALBUTEROL SULFATE HFA (90 MCG/PUFF) 8 GM MDI IH PRN (14:17)
[2020-09-25] MEDS ORDERED: INSULIN NPH (ISOPHANE), HUMAN 100 UNIT/ML 3 ML SUBCUT ONE (14:30)
--- NOTE | 2020-09-25 14:31 | PDOC PROGRESS REPORT ---
Subjective Date:: 09/25/20 Subjective:: Patient was initially reluctant to undergoing colonoscopy earlier this morning a nd wanted to go back home. However after discussing with her family, she is opting to stay and is willing to drink the bowel prep now. Has had 10 bloody bms over past 24hrs. Last episodes today. She has had issues with bouts of diarrhea accompanied by abdominal pain in the past but has never involved hematochezia. Reason For Visit: COLITIS,HEMATOCHEZIA,HYPERGLYCEMIA Physical Exam Vital Signs: Temp Pulse Resp BP Pulse Ox 98.5 F 94 15 133/68 H 94 09/25/20 11:09 09/25/20 11:09 09/25/20 11:09 09/25/20 11:09 09/25/20 11:09 Intake & Output 09/24/20 09/25/20 09/26/20 06:59 06:59 06:59 Intake Total 1500 Balance 1500 Weight 61.5 kg General appearance: PRESENT: no acute distress, cooperative Head exam: PRESENT: normocephalic Respiratory exam: PRESENT: unlabored. ABSENT: accessory muscle use, retraction GI/Abdominal exam: ABSENT: distended Neurological exam: PRESENT: alert, awake, oriented to person, oriented to place, oriented to time Psychiatric exam: PRESENT: anxious. ABSENT: agitated Results Laboratory Results: 09/25/20 06:52 09/25/20 06:52 09/24/20 09/24/20 09/24/20 14:20 14:20 14:20 WBC 10.9 H RBC 4.98 Hgb 15.2 Hct 43.5 MCV 87 MCH 30.6 MCHC 35.1 RDW 12.8 Plt Count 312 Seg Neutrophils % 75.6 Sodium 130.3 L Potassium 4.3 Chloride 92 L Carbon Dioxide 27 Anion Gap 11 BUN 19 Creatinine 0.96 Est GFR ( Amer) > 60 Glucose 436 H* Calcium 9.7 Total Bilirubin 1.1 AST 27 Alkaline Phosphatase 108 Total Protein 7.1 Albumin 4.2 Lipase 271.6 Stool for White Cells Blood Type B POSITIVE Antibody Screen NEGATIVE 09/24/20 09/25/20 09/25/20 15:37 00:55 06:52 WBC 10.0 8.6 RBC 4.51 4.42 Hgb 13.6 13.4 Hct 39.1 38.1 MCV 87 86 MCH 30.2 30.3 MCHC 34.8 35.1 RDW 12.6 12.6 Plt Count 225 228 Seg Neutrophils % 67.0 Sodium Potassium Chloride Carbon Dioxide Anion Gap BUN Creatinine Est GFR ( Amer) Glucose Calcium Total Bilirubin AST Alkaline Phosphatase Total Protein Albumin Lipase Stool for White Cells MODERATE H Blood Type Antibody Screen 09/25/20 06:52 WBC RBC Hgb Hct MCV MCH MCHC RDW Plt Count Seg Neutrophils % Sodium 132.7 L Potassium 3.3 L D Chloride 97 L Carbon Dioxide 26 Anion Gap 10 BUN 13 Creatinine 0.69 Est GFR ( Amer) > 60 Glucose 241 H Calcium 9.2 Total Bilirubin AST Alkaline Phosphatase Total Protein Albumin Lipase Stool for White Cells Blood Type Antibody Screen Impressions: Abdomen/Pelvis CT 09/24/20 14:11 IMPRESSION: 1. Relative diffuse colitis extending from the hepatic flexure to the rectum with differential considerations including infectious and inflammatory etiologies. C difficile colitis should also be considered. 2. No bowel obstruction. 3. Moderate to large hiatal hernia. 4. Multiple bilateral renal cysts. Some lesions are not optimally assessed due to size and artifact from adjacent lumbar spine hardware. Suggest ultrasound for further evaluation and to exclude solid lesion. Assessment and Plan - Diagnosis (1) Hematochezia Is this a current diagnosis for this admission?: Yes (2) Colitis Is this a current diagnosis for this admission?: Yes (3) History of anemia Is this a current diagnosis for this admission?: Yes (4) Hyperglycemia due to type 2 diabetes mellitus Qualifiers: Diabetes mellitus termite treater insulin use: without fdc use Qualified Code(s): E11.65 - Type 2 diabetes mellitus with hyperglycemia Is this a current diagnosis for this admission?: Yes (5) Hypertension Is this a current diagnosis for this admission?: Yes (6) Nausea vomiting and diarrhea Is this a current diagnosis for this admission?: Yes (7) Overweight (BMI 25.0-29.9) Is this a current diagnosis for this admission?: Yes - Plan Summary Summary: Patient here with hemorrhagic colitis. Sales Representative [employer] was consulted on case and recommending colonoscopy. Patient receiving bowel prep today in anticipation of colonoscopy tomorrow. As noted by GI note, patient will need to be evaluated for ischemic colitis. C. difficile test has not yet been collected It is unclear if there is infectious etiology but will put patient on Flagyl for now. Antiemetics Replace potassium with IV potassium chloride. Monitor CBC and metabolic panel Clear liquid diet for now. N.p.o. past midnight. Hemoglobin A1c is high. Glipizide on hold for now. We will give patient a dose of NPH. - Time Time Spent with patient: 15-24 minutes Anticipated Discharge Disposition: Home, Self Care Anticipated Discharge Timeframe: within 48 hours
[2020-09-25] MEDS: CETIRIZINE 10 MG TABLET PO SCH (15:31)
[2020-09-25] MEDS: TRAMADOL HCL 50 MG TABLET PO PRN (15:31)
[2020-09-25] MEDS: METRONIDAZOLE 500 MG/NS RTU 500 MG/100 ML RTUPB IV SCH ×2 (17:10→23:15)
[2020-09-25] MEDS ORDERED: POTASSIUM CHLORIDE 10 MEQ TABLET.ER PO ONE (17:30)
[2020-09-25] MEDS ORDERED: POTASSI CL 20 MEQ/50 ML RIDER 20 MEQ/50 ML RTUPB IV SCH (18:00)
[2020-09-26] MEDS: METRONIDAZOLE 500 MG/NS RTU 500 MG/100 ML RTUPB IV SCH ×4 (05:22→23:16)
[2020-09-26 07:04] LABS: HEMATOCRIT 34.4 % (36.0-47.0); MEAN CORPUSCULAR HEMOGLOBIN 30.5 pg (27.0-33.4); MEAN CORPUSCULAR VOLUME 87 fl (80-97); PLATELET COUNT 184 10^3/uL (150-450); RED BLOOD COUNT 3.95 10^6/uL (3.72-5.28); RED CELL DISTRIBUTION WIDTH 12.7 % (11.5-14.0); WHITE BLOOD COUNT 5.5 10^3/uL (4.0-10.5)
[2020-09-26 07:28] LABS: ANION GAP 8 (5-19); BLOOD UREA NITROGEN 8 mg/dL (7-20); CALCIUM 8.6 mg/dL (8.4-10.2); CARBON DIOXIDE 23 mmol/L (22-30); CHLORIDE 102 mmol/L (98-107); GLUCOSE 229 mg/dL (75-110)
[2020-09-26] MEDS ORDERED: INFLUENZA QUAD (6MOS+) 2020-21 VAC 0.5 ML SYR IM ONE (08:00)
[2020-09-26] MEDS: RINGERS SOLUTION,LACTATED 1,000 ML IV PRN (08:46)
[2020-09-26] MEDS: INSULIN LISPRO 100 UNIT/ML 3 ML VIAL SUBCUT SCH ×3 (11:40→17:31)
[2020-09-26] MEDS: PANTOPRAZOLE SODIUM 40 MG VIAL IV SCH ×2 (12:55→22:55)
--- NOTE | 2020-09-26 14:09 | Operative Report ---
Operative Report DATE OF SURGERY: 09/26/20 Operative Report: The risk, benefits and alternatives of the procedure including the risk of bleeding, perforation requiring surgery have been explained to the patient in detail and informed consent has been obtained. The patient is taken back to the operating room and placed in a left, lateral decubital position. Timeout was called. Propofol medication is administered. Rectal examination is done which did not reveal any masses, tears or fissures. An Olympus videoscope was introduced into the patient's rectum. Scope was then carefully advanced all the way to the cecum. Cecum was identified by the usual anatomical landmarks including the ileocecal valve as well as the appendiceal office. Photodocumentation is obtained. Scope was then sequentially pulled back via the various segments of the colon including the ascending colon, hepatic flexure, transverse colon, splenic flexure, descending colon finally in to the rectosigmoid portions of the colon. Retroflexion maneuver is performed. The risks benefits and alternatives of the procedure explained to the patient in detail and informed consent is obtained.A GIF Olympus video scope was inserted into the patient's mouth and hypopharynx, the esophagus is identified intubated and insufflated, the scope was then advanced through the esophagus stomach and duodenum ,retroflexion maneuver is done the esophagus stomach and first and second portions of the duodenum examined PREOPERATIVE DIAGNOSIS: Colitis with blood in stool, abdominal pain. Nausea vomiting POSTOPERATIVE DIAGNOSIS: Inflammation noted in the colon that actually starts distal transverse around the splenic flexure into the descending colon likely consistent with ischemic colitis. Diverticulosis. Internal hemorrhoids. Large hiatal hernia. Gastritis status post biopsy. Duodenitis OPERATION: Colonoscopy with biopsy. EGD with biopsy SURGEON: CHELI LEIVA ANESTHESIA: LMAC TISSUE REMOVED OR ALTERED: As noted above. COMPLICATIONS: None. ESTIMATED BLOOD LOSS: None. INTRAOPERATIVE FINDINGS: As noted above. PROCEDURE: Patient tolerated the procedure well. No immediate postprocedure complications are noted. Patient is sent to recovery in good condition. Resume previous diet as tolerated. Resume previous activity level Wait on biopsies Follow-up as outpatient
[2020-09-26] MEDS: HYDROCHLOROTHIAZIDE 25 MG TABLET PO SCH (15:23)
[2020-09-26] MEDS: CETIRIZINE 10 MG TABLET PO SCH (15:24)
[2020-09-26] MEDS: LISINOPRIL 10 MG TABLET PO SCH (15:24)
--- NOTE | 2020-09-26 18:32 | PDOC PROGRESS REPORT ---
Subjective Date:: 09/26/20 Subjective:: Patient states bleeding has stopped on my encounter this morning. She was not h aving any abdominal pain at this time. He did have few episodes of clear diarrhea after taking the GoLYTELY. She feels quite fatigued. Reason For Visit: COLITIS,HEMATOCHEZIA,HYPERGLYCEMIA Physical Exam Vital Signs: Temp Pulse Resp BP Pulse Ox 97.6 F 87 15 149/82 H 100 09/26/20 14:41 09/26/20 14:41 09/26/20 14:41 09/26/20 14:41 09/26/20 14:41 Intake & Output 09/25/20 09/26/20 09/27/20 06:59 06:59 06:59 Intake Total 1500 1610 800 Output Total 0 Balance 1500 1610 800 Weight 61.5 kg 61.5 kg General appearance: PRESENT: no acute distress, cooperative Neck exam: ABSENT: JVD Respiratory exam: PRESENT: symmetrical, unlabored. ABSENT: tachypnea, wheezes Cardiovascular exam: PRESENT: RRR, +S1, +S2. ABSENT: tachycardia GI/Abdominal exam: PRESENT: soft. ABSENT: rebound, rigid, tenderness Neurological exam: PRESENT: alert, awake, oriented to person, oriented to place, oriented to time, oriented to situation Psychiatric exam: ABSENT: agitated, anxious Results Laboratory Results: 09/26/20 05:58 09/26/20 05:58 09/26/20 09/26/20 05:58 05:58 WBC 5.5 RBC 3.95 Hgb 12.0 Hct 34.4 L MCV 87 MCH 30.5 MCHC 35.0 RDW 12.7 Plt Count 184 Sodium 133.2 L Potassium 4.0 Chloride 102 Carbon Dioxide 23 Anion Gap 8 BUN 8 Creatinine 0.69 Est GFR ( Amer) > 60 Glucose 229 H Calcium 8.6 09/24/20 15:37 Stool - Stool - Final 09/24/20 15:37 Stool - Stool Stool Culture - Final NO SALMONELLA, SHIGELLA, CAMPYLOBACTER, OR E.COLI 0157 RECOVERED. NEGATIVE FOR SHIGA TOXINS 1&2. Impressions: Abdomen/Pelvis CT 09/24/20 14:11 IMPRESSION: 1. Relative diffuse colitis extending from the hepatic flexure to the rectum with differential considerations including infectious and inflammatory etiologies. C difficile colitis should also be considered. 2. No bowel obstruction. 3. Moderate to large hiatal hernia. 4. Multiple bilateral renal cysts. Some lesions are not optimally assessed due to size and artifact from adjacent lumbar spine hardware. Suggest ultrasound for further evaluation and to exclude solid lesion. Assessment and Plan - Diagnosis (1) Hematochezia Is this a current diagnosis for this admission?: Yes (2) Colitis Is this a current diagnosis for this admission?: Yes (3) History of anemia Is this a current diagnosis for this admission?: Yes (4) Hyperglycemia due to type 2 diabetes mellitus Qualifiers: Diabetes mellitus mcfp insulin use: without terminal computer operator use Qualified Co de(s): E11.65 - Type 2 diabetes mellitus with hyperglycemia Is this a current diagnosis for this admission?: Yes (5) Hypertension Is this a current diagnosis for this admission?: Yes (6) Nausea vomiting and diarrhea Is this a current diagnosis for this admission?: Yes (7) Overweight (BMI 25.0-29.9) Is this a current diagnosis for this admission?: Yes - Plan Summary Summary: 09/25 Patient here with hemorrhagic colitis. Mold Stamper was consulted on case and recommending colonoscopy. Patient receiving bowel prep today in anticipation of colonoscopy tomorrow. As noted by GI note, patient will need to be evaluated for ischemic colitis. C. difficile test has not yet been collected It is unclear if there is infectious etiology but will put patient on Flagyl for now. Antiemetics Replace potassium with IV potassium chloride. Monitor CBC and metabolic panel Clear liquid diet for now. N.p.o. past midnight. Hemoglobin A1c is high. Glipizide on hold for now. We will give patient a dose of NPH. 09/26 Patient underwent colonoscopy and EGD today which revealed gastritis, duodenitis as well as colitis involving the region between the splenic flexure and the descending colon suggestive of ischemic colitis. Her hematochezia does seem to have stopped even though a small amount of blood was noted on the colonoscopy. Biopsies were taken Patient is on PPI Patient resumed on diet We will discuss with GI tomorrow before proceeding with discharge. Check CBC in the morning Check metabolic panel and lipid panel - Time Time Spent with patient: Less than 15 minutes Anticipated Discharge Disposition: Home, Self Care Anticipated Discharge Timeframe: within 24 hours
[2020-09-26] MEDS: TRAMADOL HCL 50 MG TABLET PO PRN (22:55)
[2020-09-27] MEDS: METRONIDAZOLE 500 MG/NS RTU 500 MG/100 ML RTUPB IV SCH (05:33)
[2020-09-27] MEDS: INSULIN LISPRO 100 UNIT/ML 3 ML VIAL SUBCUT SCH (09:53)
--- NOTE | 2020-09-27 10:18 | PDOC DISCHARGE SUMMARY ---
Impression - Admit/DC Date/PCP Admission Date/Primary Care Provider: 09/24/20 21:42 VALENTINA JIANG MD Discharge Date: 09/27/20 - Discharge Diagnosis (1) Hematochezia Is this a current diagnosis for this admission?: Yes (2) Colitis Is this a current diagnosis for this admission?: Yes (3) History of anemia Is this a current diagnosis for this admission?: Yes (4) Hyperglycemia due to type 2 diabetes mellitus Is this a current diagnosis for this admission?: Yes (5) Hypertension Is this a current diagnosis for this admission?: Yes (6) Nausea vomiting and diarrhea Is this a current diagnosis for this admission?: Yes (7) Overweight (BMI 25.0-29.9) Is this a current diagnosis for this admission?: Yes - Additional Information Resuscitation Status: Full Code Discharge Diet: Cardiac Discharge Activity: Activity As Tolerated Referrals: VALENTINA JIANG DO [Primary Care Provider] - Follow up as needed CHELI LEIVA MD [ACTIVE STAFF] - Prescriptions: Pantoprazole Sodium [Protonix] 40 mg PO DAILY #30 tablet. Home Medications: Cetirizine HCl [Zyrtec 10 mg Tablet] 1 tab PO DAILY 03/20/15 Lisinopril 10 mg PO DAILY 03/20/15 Multivit-Min/Iron/Folic/Lutein [Centrum Silver Women Tablet] 1 tab PO DAILY 03/20/15 Tramadol HCl 50 mg PO Q8HP PRN 03/20/15 Albuterol Sulfate [Proair HFA Inhalation Aerosol 8.5 gm MDI] 2 puff IH Q6HP PRN 09/24/20 Glipizide [Glipizide Xl] 10 mg PO DAILY 09/24/20 Hydrochlorothiazide [Hydrodiuril 25 mg Tablet] 12.5 mg PO DAILY 09/24/20 Multivitamin,Stress Formula [Stress Formula] 1 tab PO DAILY 09/24/20 Vit D3-Vit K/Berberine/Hops [Ostera Tablet] 1,000 mcg PO DAILY 09/24/20 Pantoprazole Sodium [Protonix] 40 mg PO DAILY #30 tablet. 09/27/20 History of Present Illiness History of Present Illness: According to admitting provider: JUDITH QUEZADA is a 75 year old female with a history of hypertension, type 2 diabetes, chronic low back pain and history of iron deficiency anemia with multiple infusions and blood transfusions since 2010 now presents to the ED reporting 2 days duration of nausea, vomiting, bloody diarrhea. She states that she became nauseous and started having vomiting after she took glipizide. And following that started having multiple episodes of diarrhea mixed with bright red blood. Associated with this she also reports crampy, 7/10 constant lower abdominal pain with no aggravating or relieving factor. She has not noticed any bleeding in her vomitus and denies upper abdominal pain. She reports that she had a history of chronic anemia and has been following up with heme-onc for a long time. She states that she has been worked up extensively including upper and lower GI endoscopy with capsule endoscopy which were all negative except for signs of hemorrhoid. She had multiple transfusions in the past including iron IV iron infusion. Patient states that the cause of her anemia was not known. Her last colonoscopy with 3 years back and she states it was negative except venancio e internal hemorrhoids. She denies any fever, chills, dysuria, frequency, urgency, shortness of breath, chest pain. Currently she is not on any blood thinners including aspirin. Hospital Course Hospital Course: 09/25 Patient here with hemorrhagic colitis. Abrading Machine Tender was consulted on case and recommending colonoscopy. Patient receiving bowel prep today in anticipation of colonoscopy tomorrow. As noted by GI note, patient will need to be evaluated for ischemic colitis. C. difficile test has not yet been collected It is unclear if there is infectious etiology but will put patient on Flagyl for now. Antiemetics Replace potassium with IV potassium chloride. Monitor CBC and metabolic panel Clear liquid diet for now. N.p.o. past midnight. Hemoglobin A1c is high. Glipizide on hold for now. We will give patient a dose of NPH. 09/26 Patient underwent colonoscopy and EGD today which revealed gastritis, duodenitis as well as colitis involving the region between the splenic flexure and the descending colon suggestive of ischemic colitis. Her hematochezia does seem to have stopped even though a small amount of blood was noted on the colonoscopy. Biopsies were taken Patient is on PPI Patient resumed on diet We will discuss with GI tomorrow before proceeding with discharge. Check CBC in the morning Check metabolic panel and lipid panel 09/27/2020 Patient doing okay today. I have discussed case with Dr. Leiva who recommends that findings were suggestive of ischemic colitis and that patient can be discharged today without antibiotics as there were no findings suggestive of infectious colitis. He will follow up with her outpatient to discuss results of biopsy. We will set up a follow-up appointment. I have initiated patient on Protonix given her gastritis and duodenitis. Patient has refused blood draws today so we cannot evaluate her lipid panel and her H&H. Patient adamantly requesting to go home and we will discharge her at this point. Patient is hemodynamically stable. Physical Exam Vital Signs: Temp Pulse Resp BP Pulse Ox 97.5 F 92 16 140/75 H 100 09/27/20 07:45 09/27/20 07:45 09/27/20 07:45 09/27/20 07:45 09/27/20 07:45 Intake & Output 09/26/20 09/27/20 09/28/20 06:59 06:59 06:59 Intake Total 1610 2472 100 Output Total 0 Balance 1610 2472 100 Weight 61.5 kg 64.1 kg General appearance: PRESENT: no acute distress, cooperative Neck exam: ABSENT: JVD Respiratory exam: PRESENT: unlabored. ABSENT: accessory muscle use, retraction Neurological exam: PRESENT: alert, awake Psychiatric exam: ABSENT: agitated, anxious Skin exam: ABSENT: jaundice Results Laboratory Results: WBC 5.5 10^3/uL (4.0-10.5) 09/26/20 05:58 RBC 3.95 10^6/uL (3.72-5.28) 09/26/20 05:58 Hgb 12.0 g/dL (12.0-15.5) 09/26/20 05:58 Hct 34.4 % (36.0-47.0) L 09/26/20 05:58 MCV 87 fl (80-97) 09/26/20 05:58 MCH 30.5 pg (27.0-33.4) 09/26/20 05:58 MCHC 35.0 g/dL (32.0-36.0) 09/26/20 05:58 RDW 12.7 % (11.5-14.0) 09/26/20 05:58 Plt Count 184 10^3/uL (150-450) 09/26/20 05:58 Lymph % (Auto) 24.9 % (13-45) 09/25/20 06:52 Ellis % (Auto) 6.5 % (3-13) 09/25/20 06:52 Eos % (Auto) 1.3 % (0-6) 09/25/20 06:52 Baso % (Auto) 0.3 % (0-2) 09/25/20 06:52 Absolute Neuts (auto) 5.7 10^3/uL (1.7-8.2) 09/25/20 06:52 Absolute Lymphs (auto) 2.1 10^3/uL (0.5-4.7) 09/25/20 06:52 Absolute Monos (auto) 0.6 10^3/uL (0.1-1.4) 09/25/20 06:52 Absolute Eos (auto) 0.1 10^3/uL (0.0-0.6) 09/25/20 06:52 Absolute Basos (auto) 0.0 10^3/uL (0.0-0.2) 09/25/20 06:52 Seg Neutrophils % 67.0 % (42-78) 09/25/20 06:52 PT 13.8 SEC (11.4-15.4) 09/24/20 14:20 INR 1.04 09/24/20 14:20 APTT 26.8 SEC (23.5-35.8) 09/24/20 14:20 Sodium 133.2 mmol/L (137-145) L 09/26/20 05:58 Potassium 4.0 mmol/L (3.6-5.0) 09/26/20 05:58 Chloride 102 mmol/L (98-107) 09/26/20 05:58 Carbon Dioxide 23 mmol/L (22-30) 09/26/20 05:58 Anion Gap 8 (5-19) 09/26/20 05:58 BUN 8 mg/dL (7-20) 09/26/20 05:58 Creatinine 0.69 mg/dL (0.52-1.25) 09/26/20 05:58 Est GFR ( Amer) > 60 (>60) 09/26/20 05:58 Est GFR (MDRD) Non-Af > 60 (>60) 09/26/20 05:58 Glucose 229 mg/dL (75-110) H 09/26/20 05:58 POC Glucose 164 mg/dL (70-110) H 09/26/20 21:39 Hemoglobin A1c % 12.4 % (4.7-6.0) H 09/25/20 06:52 Calcium 8.6 mg/dL (8.4-10.2) 09/26/20 05:58 Total Bilirubin 1.1 mg/dL (0.2-1.3) 09/24/20 14:20 Direct Bilirubin 0.3 mg/dL (0.0-0.4) 09/24/20 14:20 Neonat Total Bilirubin Not Reportable 09/24/20 14:20 Neonat Direct Bilirubin Not Reportable 09/24/20 14:20 Neonat Indirect Bili Not Reportable 09/24/20 14:20 AST 27 U/L (14-36) 09/24/20 14:20 ALT 19 U/L (<35) 09/24/20 14:20 Alkaline Phosphatase 108 U/L (38-126) 09/24/20 14:20 Total Protein 7.1 g/dL (6.3-8.2) 09/24/20 14:20 Albumin 4.2 g/dL (3.5-5.0) 09/24/20 14:20 Lipase 271.6 U/L (23-300) 09/24/20 14:20 Stool for White Cells MODERATE H 09/24/20 15:37 Influenza A (RT-PCR) NEGATIVE (NEGATIVE) 09/24/20 20:25 Influenza B (RT-PCR) NEGATIVE (NEGATIVE) 09/24/20 20:25 RSV (RT-PCR) NEGATIVE (NEGATIVE) 09/24/20 20:25 SARS-CoV-2 Rap RNA(RT-PCR) NEGATIVE (NEGATIVE) 09/24/20 20:25 Blood Type B POSITIVE 09/24/20 14:20 Antibody Screen NEGATIVE 09/24/20 14:20 Impressions: Abdomen/Pelvis CT 09/24/20 14:11 IMPRESSION: 1. Relative diffuse colitis extending from the hepatic flexure to the rectum with differential considerations including infectious and inflammatory etiologies. C difficile colitis should also be considered. 2. No bowel obstruction. 3. Moderate to large hiatal hernia. 4. Multiple bilateral renal cysts. Some lesions are not optimally assessed due to size and artifact from adjacent lumbar spine hardware. Suggest ultrasound for further evaluation and to exclude solid lesion. Plan Time Spent: Less than 30 Minutes Stroke Is this a Stroke Patient?: No Acute Heart Failure Is this a Heart Failure Patient?: No
[2020-09-27 10:39] VITALS: BP 150/80
[2020-09-27] MEDS: HYDROCHLOROTHIAZIDE 25 MG TABLET PO SCH (10:47)
[2020-09-27] MEDS: LISINOPRIL 10 MG TABLET PO SCH (10:47)
[2020-09-27] MEDS: CETIRIZINE 10 MG TABLET PO SCH (10:47)
[2020-09-27] MEDS: PANTOPRAZOLE SODIUM 40 MG VIAL IV SCH (10:48)
== END 2020-09-27 12:15 | disposition home or self-care (01) | DRG 394 ==
LOC: ER 13:32 → EH 21:42 → 3W 23:07
PROVIDERS: ADMIT Student in an Organized Health Care Education/Training Program; ATTEND Internal Medicine
PROC: 0DBE8ZX Excision of Large Intestine, Via Natural or Artificial Opening Endoscopic, Diagnostic (ICD-10-PCS; principal; 2020-09-26 12:30)
PROC: 0DB78ZX Excision of Stomach, Pylorus, Via Natural or Artificial Opening Endoscopic, Diagnostic (ICD-10-PCS; 2020-09-26 12:30)
PROC: 3E02340 Introduction of Influenza Vaccine into Muscle, Percutaneous Approach (ICD-10-PCS; 2020-09-27)
DX: K55.9 Vascular disorder of intestine, unspecified (principal); K92.1 Melena; E11.65 Type 2 diabetes mellitus with hyperglycemia; K57.90 Diverticulosis of intestine, part unspecified, without perforation or abscess without bleeding; K64.8 Other hemorrhoids; K44.9 Diaphragmatic hernia without obstruction or gangrene; K29.70 Gastritis, unspecified, without bleeding; K29.80 Duodenitis without bleeding; D50.9 Iron deficiency anemia, unspecified; I10 Essential (primary) hypertension; M19.90 Unspecified osteoarthritis, unspecified site; N28.1 Cyst of kidney, acquired; E66.3 Overweight; M54.5 Low back pain; I25.10 Atherosclerotic heart disease of native coronary artery without angina pectoris; J45.909 Unspecified asthma, uncomplicated; Z79.51 Long term (current) use of inhaled steroids; Z79.899 Other long term (current) drug therapy; Z79.84 Long term (current) use of oral hypoglycemic drugs; Z88.6 Allergy status to analgesic agent; Z91.040 Latex allergy status; Z88.8 Allergy status to other drugs, medicaments and biological substances; Z20.828 Contact with and (suspected) exposure to other viral communicable diseases; Z23 Encounter for immunization
CPT/HCPCS: 36415; 43239; 45380; 74177; 80048; 80053; 813; 82962; 83036; 83690; 85025; 85027; 85610; 85730; 86850; 86900; 86901; 87045; 87205; 88305; 89055; 90471; 90686; 93005; 93010; 96360; 99285; 0241U; C9113; C9803; G0008; J1815; J3480; J3490; J7040; J7120

== ENCOUNTER → 2020-11-02 | Outpatient (CLI) | payer MEDICARE, BC ==
[~2020-11-02] MED LIST: COVID-19 VACCINE (PFIZER)/PF 30 MCG/0.3 ML VIAL IM ONE; EPINEPHRINE INJ/PF 1 MG/1 ML AMPULE IM PRN
== END ==
LOC: EMPHEALTH 14:53
PROVIDERS: ATTEND Internal Medicine
DX: Z23 Encounter for immunization (principal)
CPT/HCPCS: 91300